=== PATIENT | female | born 1975 | race Caucasian/White ===

== ENCOUNTER 2022-08-30 14:28 | Outpatient (CLI) | payer OTHER, SELFPAY ==
--- NOTE | 2022-08-30 14:40 | CRLHL7_ITS ---
For Patients: As a result of the Century Cures Act, medical imaging exams and procedure reports are released immediately into your electronic medical record. You may view this report before your referring provider. If you have questions, please contact your health care provider. BILATERAL DIGITAL SCREENING MAMMOGRAM WITH TOMOSYNTHESIS AND COMPUTER-AIDED DETECTION CLINICAL HISTORY: Routine screening exam. COMPARISON: 08/23/2021, 08/04/2020, 07/12/2019. TECHNIQUE: Digital mammogram in CC and MLO projections including computer-aided detection (CAD). Tomosynthesis utilized. BREAST COMPOSITION: The breasts are heterogeneously dense, which may obscure small masses. FINDINGS: RIGHT Breast: Focal asymmetric density within the posterior RIGHT breast CC view only 6 cm from the nipple. This is a probable cyst in located at approximately 5 o`clock. LEFT Breast: No suspicious findings. IMPRESSION: RIGHT breast asymmetry/mass. RECOMMENDATIONS: RIGHT breast ultrasound recommended. BI-RADS Category 0: Incomplete: Need Additional Imaging Evaluation and/or Prior Mammograms for Comparison The [facility] will contact the patient for follow-up. A lay language report of this examination will be provided to the patient. Dictated by True Morrison MD @ 08/31/2022 10:57:34 AM jj/Dictated by: True Morrison MD @ 08/31/2022 10:57:00 AM (Electronically Signed)
== END 2022-08-30 14:29 | disposition home or self-care (01) ==
LOC: MAMMO 14:29
PROVIDERS: PCP Family Medicine; Visit Provider Family Medicine
DX: Z12.31 Encounter for screening mammogram for malignant neoplasm of breast (principal); N63.10 Unspecified lump in the right breast, unspecified quadrant
CPT/HCPCS: 77063; 77067

== ENCOUNTER 2022-09-01 07:33 | Outpatient (CLI) | payer OTHER, SELFPAY ==
[2022-09-01 09:55] LABS: Albumin* 3.9 g/dL (3.3-5.0); Chloride* 110 mmol/L (96-114)
[2022-09-01 09:56] LABS: Potassium* 4.6 mmol/L (3.6-5.1); Sodium* 138 mmol/L (135-149)
[2022-09-01 09:58] LABS: Carbon Dioxide* 25 mmol/L (20-32); Cholesterol* 196 mg/dL (90-199); Estimated Glomerular Filt Rate 71 ml/min
[2022-09-01 09:59] LABS: Alanine Aminotransferase* 18 U/L (4-35); Alkaline Phosphatase* 46 U/L (40-150); Aspartate Amino Transferase* 24 U/L (12-35); Bilirubin Total* 0.4 mg/dL (0.1-1.5); Blood Urea Nitrogen* 20 mg/dL (5-24); Calcium* 8.4 mg/dL (8.4-10.6); Glucose* 91 mg/dL (60-115); Total Protein* 6.5 g/dL (6.0-8.3); Triglycerides* 84 mg/dL (40-149)
[2022-09-01 10:00] LABS: HDL Cholesterol* 65 mg/dL (>=50); LDL Cholesterol Calculated 114 mg/dL (<100)
[2022-09-08 08:19] LABS: Iron* 31 ug/dL (37-170)
[2022-09-08 08:28] LABS: Percent Iron Saturation 7 % (20-50); Total Iron Binding Capacity 465 ug/dL (265-497)
[2022-09-08 09:09] LABS: Vitamin B12* 405 pg/mL (243-894)
== END 2022-09-01 07:34 | disposition home or self-care (01) ==
LOC: NFLDREF 07:33
PROVIDERS: PCP Family Medicine; Visit Provider Family Medicine
DX: E78.5 Hyperlipidemia, unspecified (principal)
CPT/HCPCS: 80053; 80061; 82607

== ENCOUNTER 2022-09-05 11:03 | Outpatient (CLI) | payer OTHER, SELFPAY ==
--- NOTE | 2022-09-05 11:15 | CRLHL7_ITS ---
For Patients: As a result of the Cures Act, medical imaging exams and procedure reports are released immediately into your electronic medical record. You may view this report before your referring provider. If you have questions, please contact your health care provider. RIGHT BREAST ULTRASOUND CLINICAL HISTORY: RIGHT breast mass/asymmetry. COMPARISON: 08/30/2022. TECHNIQUE: Real-time ultrasound imaging of the RIGHT breast with imaging documentation. FINDINGS: Targeted sonogram RIGHT breast 5 o`clock 6 cm from the nipple performed. In this location there is a simple circumscribed mostly anechoic cyst with increased through-transmission measuring 1.1 x 0.6 x 1.2 cm. Mild internal debris noted. IMPRESSION: Benign cyst RIGHT breast 5 o`clock 6 cm from the nipple measuring 1.2 cm. No evidence of malignancy. RECOMMENDATIONS: Annual BILATERAL screening mammography. Results and recommendations were discussed with the patient at the time of the exam. BI-RADS Category 2: Benign A lay language report of this examination will be provided to the patient. Dictated by True Morrison MD @ 09/05/2022 11:49:31 AM /Dictated by: True Morrison MD @ 09/05/2022 11:49:00 AM (Electronically Signed)
== END 2022-09-05 11:04 | disposition home or self-care (01) ==
PROVIDERS: PCP Family Medicine; Visit Provider Family Medicine
DX: N63.10 Unspecified lump in the right breast, unspecified quadrant (principal); N60.01 Solitary cyst of right breast; R92.8 Other abnormal and inconclusive findings on diagnostic imaging of breast
CPT/HCPCS: 76642

== ENCOUNTER 2022-09-08 07:26 | Outpatient (CLI) | payer OTHER, SELFPAY | END 2022-09-08 07:27 | disposition home or self-care (01) | LOC: NFLDREF 07:27 | PROVIDERS: PCP Family Medicine; Visit Provider Family Medicine | DX: Z00.00 Encounter for general adult medical examination without abnormal findings (principal); D64.9 Anemia, unspecified; N92.0 Excessive and frequent menstruation with regular cycle; E78.5 Hyperlipidemia, unspecified | CPT/HCPCS: 82728; 83540; 83550 ==

== ENCOUNTER 2022-09-14 10:36 | Outpatient (CLI) | payer OTHER, SELFPAY ==
--- NOTE | 2022-09-14 11:00 | CRLHL7_ITS ---
For Patients: As a result of the Century Cures Act, medical imaging exams and procedure reports are released immediately into your electronic medical record. You may view this report before your referring provider. If you have questions, please contact your health care provider. INDICATION: heavy periods, iron deficiency COMPARISON: none TECHNIQUE: 2D gonzalez scale and color Doppler images were acquired of the pelvis using a transabdominal and transvaginal approach. FINDINGS: A fundal intramural leiomyoma is present measuring 4.4 x 4.2 x 4.7 cm. This is located in the midline and abuts the endometrium. A right fundal fibroid is also noted measuring 4.0 x 6.2 x 4.8 cm. This is partially exophytic. An exophytic right sided fibroid also present arising from the mid uterus measuring 3.2 x 3.4 x 4.5 cm. The endometrium is obscured. Uterus measures 15.4 cm in length by 9.1 cm in AP diameter by 10.2 cm in transverse dimension. The right ovary measures 2.8 x 1.5 x 1.7 cm in size and the left ovary is not visualized. The right ovary demonstrates normal arterial and venous blood flow on color Doppler analysis. There are no suspicious fluid collections within the cul-de-sac. IMPRESSION: Multiple uterine fibroids measuring up to 6.2 cm. The endometrium is obscured. The midline fundal fibroid abuts the fundal endometrium and may be partially submucosal. Dictated by True Morrison MD @ 09/14/2022 12:41:43 PM (Electronically Signed)
== END 2022-09-14 10:37 | disposition home or self-care (01) ==
LOC: US 10:37
PROVIDERS: PCP Family Medicine; Visit Provider Family Medicine
DX: N92.0 Excessive and frequent menstruation with regular cycle (principal); D25.9 Leiomyoma of uterus, unspecified; D50.0 Iron deficiency anemia secondary to blood loss (chronic)
CPT/HCPCS: 76830; 76856

== ENCOUNTER 2022-11-03 06:04 | Day surgery (SDC) | payer OTHER, SELFPAY ==
[2022-11-03] MEDS: LACTATED RINGERS 1000 ML 1,000 ML 100 ML IV ×2 (06:30→07:50)
[2022-11-03] MEDS: SODIUM CHLORIDE 0.9 % (FLUSH) 10 ML SYRINGE IVF (06:30)
[2022-11-03 06:38] VITALS: BP 135/88; PULSE 116; RESP 18; TEMP 36.8; O2SAT 97; BMI 31.4
--- NOTE | 2022-11-03 06:42 | SUR.PREOP ---
Patient provided home covid negative results to RN.
[2022-11-03 06:55] LABS: Hemoglobin* 11.1 gm/dL (12.0-16.0)
[2022-11-03 06:59] LABS: Ur HCG Qualitative* Negative (Negative)
--- NOTE | 2022-11-03 07:14 | W.ANESCHARGE ---
Anesthesia Charges Start Date/Time Anesthesia Start Date: 11/03/22 Anesthesia Start Time: 07:21 Stop Date/Time Anesthesia Stop Date: 11/03/22 Anesthesia Stop Time: 08:16
[2022-11-03] MEDS: SILVER NITRATE APPLICATOR 1 EACH STICK..EA. TOPICAL (08:02)
[2022-11-03 08:13] VITALS: BP 105/67; PULSE 83; RESP 14; TEMP 36.3; O2SAT 99
[2022-11-03 08:15] VITALS: BP 115/60; PULSE 78; RESP 14; O2SAT 95
[2022-11-03 08:30] VITALS: BP 107/62; PULSE 67; RESP 16; O2SAT 99
--- NOTE | 2022-11-03 08:30 | P.GYNPRC_ITS ---
Procedure Note Time Seen by Provider: 07:45 Date Seen: 11/03/22 Procedure Details: Preoperative diagnosis: 47 year-old with AUB causing iron deficiency anemia likely due to intrauterine polyp. Postoperative diagnosis: AUB 2/2 to endometrial polyp and cervical leiomyoma Procedure: Hysteroscopy, dilation and curettage, polypectomy, myomectomy, and Mirena IUD insertion Anesthesia: Conscious sedation with paracervical block. Surgeon: Roberta Jacob MD Estimated blood loss: <5 mL Specimen: Endometrial curettings/polyp/leiomyoma to pathology. Findings: Exam under anesthesia: Cervix palpates normal. Uterus: Anteverted position, 8 week size, mobile, without nodularity/masses palpable. Adnexa were without fullness or nodularity. On hysteroscopy: One fundal polyp noted near the right tubal ostea and one leiomyoma noted at internal os. Procedure: Teetee was taken to the operating where conscious sedation was found to be adequate. She was placed in the dorsal lithotomy position. An exam under anesthesia was performed with findings stated above. She was then prepped and draped in normal sterile manner. A bivalve metal speculum was placed in the vaginal canal. The cervix and vaginal canal appear normal. A paracervical block was placed using 1% lidocaine: 5 mL injected at the 4 and 8 o'clock positions on the cervix. The anterior lip of the cervix was then grasped with a tenaculum. The cervix was dilated to Hegar 6. The uterus sounded to 10 cm. The hysteros cope advanced into the uterus and a diagnostic hysteroscopy was performed with findings stated above. Normal saline was used as the insufflation medium. Soft tissue shaver used to perform polypectomy. Unable to perform the myomectomy with the soft tissue shaver so the hysteroscope was removed. The cervix was dilated to Hegar 7 to accommodate a bigger scope associated with the dense tissues shaver. The hysteroscope was then readvanced into the uterus and myomectomy was performed without issues. Afterward a normal appearing uterine cavity was noted. Hysteroscopy was removed. Fluid deficit at the end of the procedure 200 cc. Attention was then turned towards IUD insertion. Uterus sounds to 10 cm. The IUD is loaded into the insertion tube, inserted to the sounded depth, and the IUD is deployed. Insertion tube was removed. Strings are trimmed to 3 cm. There were no complications with insertion. Tenaculum were removed from the uterus and cervix. Silver nitrite used to cauterize bleeding tenaculum site. Excellent hemostasis noted. The patient tolerated the procedure well. Sponge, lap and instruments counts were correct at the end of the procedure. The patient was awakened from anesthesia and taken to the recovery area in stable condition.
[2022-11-03 08:45] VITALS: BP 122/69; PULSE 66; RESP 16; O2SAT 99
--- NOTE | 2022-11-03 08:47 | W.ANESCHARGE ---
Anesthesia Charges Start Date/Time Anesthesia Start Date: 11/03/22 Anesthesia Start Time: 07:21 Stop Date/Time Anesthesia Stop Date: 11/03/22 Anesthesia Stop Time: 08:16
[2022-11-03 09:00] VITALS: BP 108/56; PULSE 67; RESP 16; O2SAT 100
== END 2022-11-03 09:16 | disposition home or self-care (01) ==
PROVIDERS: PCP Family Medicine; Visit Provider Obstetrics & Gynecology
PROC: 0UDB8ZZ Extraction of Endometrium, Via Natural or Artificial Opening Endoscopic (ICD-10-PCS; CPT 58558; principal; 2022-11-03 07:15)
DX: N84.0 Polyp of corpus uteri (principal); D26.0 Other benign neoplasm of cervix uteri; D50.0 Iron deficiency anemia secondary to blood loss (chronic); Z30.430 Encounter for insertion of intrauterine contraceptive device
CPT/HCPCS: 58561; 58300; 00952; 36415; 81025; 85018; A9270; J1100; J1885; J2250; J2405; J2704; J3010; J7120; J7298

== ENCOUNTER 2023-01-03 08:44 | Outpatient (CLI) | payer OTHER, SELFPAY | END 2023-01-03 08:45 | disposition home or self-care (01) | LOC: NFLDREF 01-04 07:57 | PROVIDERS: PCP Family Medicine; Referring Provider Family Medicine; Visit Provider Family Medicine | DX: N92.0 Excessive and frequent menstruation with regular cycle (principal); D50.0 Iron deficiency anemia secondary to blood loss (chronic); E78.5 Hyperlipidemia, unspecified | CPT/HCPCS: 82728; 83540; 83550 ==

== ENCOUNTER 2023-09-04 07:30 | Outpatient (CLI) | payer OTHER, SELFPAY | END 2023-09-04 07:31 | disposition home or self-care (01) | LOC: NFLDREF 11:27 | PROVIDERS: PCP Family Medicine; Referring Provider Family Medicine; Visit Provider Family Medicine | DX: D50.0 Iron deficiency anemia secondary to blood loss (chronic) (principal); E78.5 Hyperlipidemia, unspecified; Z13.1 Encounter for screening for diabetes mellitus | CPT/HCPCS: 80061; 82728; 82947 ==

== ENCOUNTER 2023-11-23 07:52 | Outpatient (CLI) | payer OTHER, SELFPAY ==
--- NOTE | 2023-11-23 08:15 | MM_ITS ---
Patient: BASIM CRUMP Facility:?[facility] Patient ID:?[id number] Site Patient ID:?[id number]. Site :?[id number] Study:?XRay-Breast Bilateral 3D W/CAD-11/23/2023 8:23:17 AM Ordering Physician:Michelle Final Report: BILATERAL SCREENING MAMMOGRAM WITH COMPUTER-AIDED DETECTION AND TOMOSYNTHESIS TECHNIQUE: CC and MLO views were obtained. These mammographic images have been obtained using full-field digital technique. These mammographic images were interpreted with the benefit of computer-aided detection. Breast Tomosynthesis was used in this interpretation. COMPARISON FILM: 08/30/22, 08/23/21, 08/04/20. FINDINGS: The breasts are heterogeneously dense, which may obscure small masses IMPRESSION: There is no radiographic evidence for malignancy. ASSESSMENT: BI-RADS Category 1: Negative RECOMMENDATION: Routine screening mammogram in 1 year. A lay language report of this examination will be provided to the patient. True Morrison M.D. Diagnostic Radiologist [email or web address] Transcribed: 1:32 p.[email or web address] culp/Dictated by: True Morrison MD @ 11/23/2023 12:44:00 PM Signed by:?True Morrison MD @11/23/2023 1:50:14 PM (Electronic Signature)
== END 2023-11-23 07:53 | disposition home or self-care (01) ==
LOC: MAMMO 07:53
PROVIDERS: PCP Family Medicine; Visit Provider Family Medicine
DX: Z12.31 Encounter for screening mammogram for malignant neoplasm of breast (principal); R92.2 Inconclusive mammogram
CPT/HCPCS: 77063; 77067

== ENCOUNTER 2024-09-16 07:30 | Outpatient (CLI) | payer OTHER, SELFPAY | END 2024-09-16 07:31 | disposition home or self-care (01) | LOC: NFLDREF 09-19 22:36 | PROVIDERS: PCP Family Medicine; Referring Provider Family Medicine; Visit Provider Family Medicine | DX: E78.5 Hyperlipidemia, unspecified (principal); Z13.1 Encounter for screening for diabetes mellitus | CPT/HCPCS: 80061; 82947 ==

== ENCOUNTER 2024-09-18 08:06 | Outpatient (CLI) | payer SELFPAY ==
[2024-09-20 02:24] LABS: HPV Source Cervical/Vag; HPV, High Risk by TMA Not Detected
== END 2024-09-18 08:07 | disposition home or self-care (01) ==
PROVIDERS: PCP Family Medicine; Visit Provider Family Medicine
DX: Z12.4 Encounter for screening for malignant neoplasm of cervix (principal); Z11.51 Encounter for screening for human papillomavirus (HPV)
CPT/HCPCS: 87624; 87625; 88141; 88142

== ENCOUNTER 2024-09-24 09:01 | Outpatient (CLI) | payer OTHER, SELFPAY | END 2024-09-24 09:02 | disposition home or self-care (01) | LOC: US 09:03 | PROVIDERS: PCP Family Medicine; Visit Provider Family Medicine | DX: R19.00 Intra-abdominal and pelvic swelling, mass and lump, unspecified site (principal); D25.9 Leiomyoma of uterus, unspecified | CPT/HCPCS: 76830; 76856 ==

== ENCOUNTER 2024-11-06 07:57 | Outpatient (CLI) | payer OTHER, SELFPAY ==
--- NOTE | 2024-11-06 08:15 | CRLHL7_ITS ---
For Patients: As a result of the 21st Century Cures Act, medical imaging exams and procedure reports are released immediately into your electronic medical record. You may view this report before your referring provider. If you have questions, please contact your health care provider. INDICATION: Fibroids TECHNIQUE: 1.5 T MRI performed with pre and postcontrast T1 weighted imaging; T2 weighted imaging. 20 mL Dotarem IV COMPARISON: Pelvic ultrasound 09/24/2024 FINDINGS: Uterus: The uterus is enlarged in size measuring 7.7 x 15.5 cm. The endometrium is largely effaced by multiple large fibroids and difficult to measure. There are many (over 20) uterine fibroids present. The largest measures 5.6 x 8.4 cm (8/5), is subserosal, and located along the right uterine fundus (FIGO 6) with central areas of degeneration. At least two fibroids are predominantly submucosal (FIGO 1) measuring up to 3.1 x 3.3 cm (/16). IUD appears positioned within the low endometrial cavity. Few scattered foci of intrinsic T1 hyperintensity are indeterminate for focal fibroid degeneration versus endometriosis. Cervical stroma: Intact without evidence of mass Ovaries/adnexa: Unremarkable. No evidence of ovarian/adnexal mass. Two dominant right follicles measure up to 2.3 cm. Left corpus luteum measuring 1.7 cm. Remaining pelvis: Limited evaluation of the abdominal viscera demonstrates normal appearance of the visualized bowel and urinary bladder. Vasculature: The iliac arteries are patent. Lymph nodes: No enlarged lymph nodes within the pelvis. Peritoneal space: No free fluid within the pelvis. Musculoskeletal: Bone marrow signal is within normal limits. IMPRESSION: 1. Multifibroid uterus (over 20), with the largest measuring up to 8.1 cm (FIGO score 6). Additional submucosal fibroids (FIGO score 1) measure up to 3.3 cm. 2. IUD appears positioned within the low endometrial cavity. 3. Few scattered foci of intrinsic T1 hyperintensity are indeterminate for focal fibroid degeneration versus endometriosis. Dictated by Emi Greenfield MD @ 11/06/2024 11:23:01 AM (Electronically Signed)
== END 2024-11-06 07:58 | disposition home or self-care (01) ==
LOC: MRI 07:58
PROVIDERS: PCP Family Medicine; Visit Provider Obstetrics & Gynecology
DX: D21.9 Benign neoplasm of connective and other soft tissue, unspecified (principal); D25.0 Submucous leiomyoma of uterus; R19.00 Intra-abdominal and pelvic swelling, mass and lump, unspecified site
CPT/HCPCS: 72197; A9575

== ENCOUNTER 2024-11-26 12:46 | Outpatient (CLI) | payer OTHER, SELFPAY ==
--- NOTE | 2024-11-26 13:00 | CRLHL7_ITS ---
For Patients: As a result of the Century Cures Act, medical imaging exams and procedure reports are released immediately into your electronic medical record. You may view this report before your referring provider. If you have questions, please contact your health care provider. INDICATION: BILATERAL SCREENING MAMMOGRAM, ASYMPTOMATIC 49 F COMPARISON: 11/23/23, 08/30/22, 08/04/20 TECHNIQUE: CC and MLO views were obtained. These mammographic images have been obtained using full-field digital technique. These mammographic images were interpreted with the benefit of computer aided detection and tomosynthesis. BREAST COMPOSITION: The breasts are heterogeneously dense, which may obscure small masses. FINDINGS: No suspicious findings. ASSESSMENT: BI-RADS 1 Negative RECOMMENDATION: Annual screening mammogram. A lay language report of this examination will be provided to the patient. Dictated by: True Morrison MD @ 11/28/2024 13:17:01 (Electronically Signed)
== END 2024-11-26 12:47 | disposition home or self-care (01) ==
LOC: MAMMO 12:46
PROVIDERS: PCP Family Medicine; Visit Provider Family Medicine
DX: Z12.31 Encounter for screening mammogram for malignant neoplasm of breast (principal); R92.333 Mammographic heterogeneous density, bilateral breasts
CPT/HCPCS: 77063; 77067

== ENCOUNTER 2024-12-04 06:08 | Inpatient (IN) | payer OTHER, SELFPAY ==
[2024-12-04] VITALS (20 sets, daily range): BP systolic 102–129; BP diastolic 61–83; PULSE 60–95; RESP 14–18; TEMP 36.2–36.6; O2SAT 78–98; BMI 31.7
--- NOTE | 2024-12-04 06:43 | W.PM.H&PU ---
History & Physical Update History & Physical Update H&P Reviewed and patient assessed: No changes noted H&P Updates: Surgical plan and consent reviewed with patient. No interval changes since last time we saw each other.
[2024-12-04 06:47] LABS: Ur HCG Qualitative* Negative (Negative)
[2024-12-04] MEDS: LACTATED RINGERS 1000 ML 1,000 ML 100 ML IV ×2 (06:50→09:32)
[2024-12-04] MEDS: SODIUM CHLORIDE 0.9 % (FLUSH) 10 ML SYRINGE IVF (06:50)
[2024-12-04 07:00] LABS: Hemoglobin* 15.6 gm/dL (12.0-16.0)
[2024-12-04] MEDS: GABAPENTIN 600 MG TABLET PO (07:00)
[2024-12-04] MEDS: ACETAMINOPHEN 500 MG TABLET 1000 MG PO ×2 (07:00→12:00)
[2024-12-04] MEDS: SCOPOLAMINE 1 MG/3 DAY PATCH 1 PATCH TRANSDERMA (07:00)
[2024-12-04 07:14] LABS: Creatinine* 0.9 mg/dL (0.5-1.5); Est. Creatinine Clearance* 69.53; Estimated Glomerular Filt Rate 79 ml/min
[2024-12-04] MEDS: CEFAZOLIN 2 GM INJ IVP (07:32)
--- NOTE | 2024-12-04 07:38 | W.PM.NB ---
Nerve Block Nerve Block Time Seen by Provider: 07:30 Date Seen: 12/04/24 Type of block requested by surgeon for post-operative analgesia: TAP Side: bilateral Time out performed: Yes Verification of patient name: Yes Verification of date of : Yes Site marking: site marked Name of person performing procedure: Eladio Continuous monitoring Was continuous monitoring of O2 sat, B/P, beading installer, recorded every 15 minutes?: Yes Procedure Checklist: sterile prep, needles and gloves Ultrasound guided. Images saved: Yes Medications given in 5ml increments after negative aspiration: Marcaine %: 0.25 mL: 30 Needle gauge: 20 and Exparel mL: 10 Patient tolerated procedure well: Yes Additional comments: Needle noted between internal oblique and transversus abdominus. Local spread visualized Block Charges Block Charge (with Pro Fee): TAP Bilateral Use of Ultrasound Machine for Block: Yes- US Guidance/pain block
--- NOTE | 2024-12-04 08:17 | SUR.OPER ---
PATIENT QUESTIONS ANSWERED SATISFACTORILY PREOPERATIVELY. PATIENT BROUGHT TO OR #2 PER CART. Patient positioned supine on OR #2 bed.? Perioperative team supported arms bilaterally on arm boards.? Final approval of positioning by surgeon.
--- NOTE | 2024-12-04 09:32 | P.ANES_ITS ---
Anesthesia Charges Start Date/Time Anesthesia Start Date: 12/04/24 Anesthesia Start Time: 07:22 Stop Date/Time Anesthesia Stop Date: 12/04/24 Anesthesia Stop Time: 10:41 Coding CPT Codes CPT Codes: ANESTH SURG LOWER ABDOMEN - 81571 ([id number]) P2 - PATIENT W/MILD SYST DISEASE, QK - SLOPE RUNNER 2-4 CNCRNT ANES PROC, QX - LUBE WORKER SVC W/ MD MED DIRECTION
--- NOTE | 2024-12-04 09:32 | W.ANESCHARGE ---
Anesthesia Charges Start Date/Time Anesthesia Start Date: 12/04/24 Anesthesia Start Time: 07:22 Stop Date/Time Anesthesia Stop Date: 12/04/24 Anesthesia Stop Time: 10:41 Coding CPT Codes CPT Codes: ANESTH SURG LOWER ABDOMEN - 83418 ([id number]) P2 - PATIENT W/MILD SYST DISEASE, QK - SUPERVISOR REAL ESTATE OFFICE 2-4 CNCRNT ANES PROC, QX - MEDICAL MANAGEMENT SPECIALIST SVC W/ MD MED DIRECTION
--- NOTE | 2024-12-04 10:43 | P.ANES_ITS ---
Anesthesia Charges Start Date/Time Anesthesia Start Date: 12/04/24 Anesthesia Start Time: 07:22 Stop Date/Time Anesthesia Stop Date: 12/04/24 Anesthesia Stop Time: 10:41 Coding CPT Codes CPT Codes: ANESTH SURG LOWER ABDOMEN - 83224 ([id number]) P2 - PATIENT W/MILD SYST DISEASE, QK - NETWORK CABLER 2-4 CNCRNT ANES PROC, QX - MANAGEMENT DEVELOPER SVC W/ MD MED DIRECTION
--- NOTE | 2024-12-04 10:43 | W.ANESCHARGE ---
Anesthesia Charges Start Date/Time Anesthesia Start Date: 12/04/24 Anesthesia Start Time: 07:22 Stop Date/Time Anesthesia Stop Date: 12/04/24 Anesthesia Stop Time: 10:41 Coding CPT Codes CPT Codes: ANESTH SURG LOWER ABDOMEN - 02127 ([id number]) P2 - PATIENT W/MILD SYST DISEASE, QK - ASSEMBLY MACHINE FEEDER 2-4 CNCRNT ANES PROC, QX - WELL SERVICE FLOORPERSON SVC W/ MD MED DIRECTION
--- NOTE | 2024-12-04 10:44 | P.PCNOB_ITS ---
Procedure Type of Hysterectomy: Total Abdominal Pre-op/Post-op diagnoses: Pre-Op/Post-Op Diagnoses Operation Date: 12/04/24 07:15 <No data on this case meets the specified criteria> Procedure: Procedures Operation Date: 12/04/24 07:15 Actual Procedure Side Surgeon p Admit-Total Abdominal Hysterectomy, Bilateral Salpingectomy, Cystoscopy, BILATERAL OVARIAN CYSTECTOMIES, MIRENA I.U.D. REMOVAL. Bilateral Roberta Jacob MD Bag Machine Helper: Corrina Alicia Estimated blood loss (mL): 100 Anesthesia Type: General and Local (TAP ) Complications: none Fluids: crystalloid Fluid amount (mL): 1,400 Urine output (mL): 500 (Clear urine) Weight of Uterus: 1 lb 11.302 oz Specimen: uterus, left tube, right tube and other (Bilateral ovarian cyst ) Disposition: floor Narrative: PREOPERATIVE DIAGNOSIS: Teetee is a 49-year-old 0 para 0 with abnormal uterine bleeding. Multi-fibroid uterus (over 20). The patient requested definitive management with a hysterectomy after discussing all possible options. Consent was signed in the office prior and all risks, benefits, and alternatives were reviewed. POSTOPERATIVE DIAGNOSIS: Same SURGEON: Roberta Jacob MD ANESTHESIA: General endotracheal, TAP. COMPLICATIONS: None DRAINS: Trammell to gravity. SPECIMEN: (1) Uterus with bilateral fallopian tubes (2) Physiologic bilateral ovarian cysts. FINDINGS: Exam under anesthesia: Mons normal, clitoris normal, urethral meatus normal. Labia minora and majora normal in appearance bilaterally. Perineum and anus normal appearance. Vaginal introitus normal appearance. Vaginal pink and well rugated with scant white discharge. Cervix pink and without lesion. IUD strings visualized protruding from os. IUD strings grasped and removed with gentle traction. Mirena IUD noted to be intact after removal. Bimanual exam reveals enlarge uterus 1 cm passed umbilicus and mobile On laparotomy: Large multi-fibroid uterus. Small bilateral ovary cysts. Filmy adhesion of the sigmoid to right pelvic side wall and right posterior cul-de-sac. On cystoscopy: The dome of the bladder was noted to be without defect and no evidence of any sutures from the vaginal cuff causing injury. Normal urine flow was noted through both ureteral orifices. PROCEDURE: After obtaining informed consent, the patient was taken to the operating room where general anesthesia was obtained without difficulty. A trammell catheter was placed. She was prepared and draped in the normal sterile fashion in the dorsal supine position. A midline vertical infraumbilical skin incision was made with a scalpel. This incision was carried down to the underlying layer of fascia with a combination of the sharp dissection with the scalpel and bipolar cautery using the Bovie. The fascia was incised in the midline with the electrocautery and the incision extended superiorly and inferiorly with electrocautery. The rectus muscles were in the midline. The underlying peritoneum was identified and entered sharply with Lenka's and Metzenbaum. The peritoneal incision was extended superiorly and inferiorly with good visualization of the bladder. The patient was placed in some mild Trendelenburg positioning. The intestines were packed cephalad using a large moistened laparotomy sponge. The Cullen O retractor was placed in the incision. This provided excellent visualization of the pelvis. The pelvis was inspected with the findings noted above. [place] clamps were placed at the cornua bilaterally for traction. Both uret ers were identified along their courses within the pelvic sidewall. The right fallopian tube was grasped with a Caleb clamp. Sequential pedicles were formed using impact LigaSure. The fallopian tube was then amputated from the cornua and sent to pathology. The left fallopian tube was removed in a similar manner. Bilateral physiologic ovarian cysts noted to be leaking fluid. Decision made to perform bilateral cystectomy. Running locking stitch with 3-0 vicryl use to close the defect on right ovary with excellent hemostasis. Electrocautery used to achieve hemostasis on the left ovary. Lysis of adhesions with Metzenbaum used to take down filmy adhesions and dropped the sigmoid colon down from the left pelvic sidewall and left posterior cul-de-sac. Attention was turned to completing the hysterectomy. The left round ligament was doubly clamped with Fran clamps, transected, and suture ligated with 0 Vicryl. The anterior leaf of the broad ligament was opened to the midline from the right side. The bladder flap was created with a combination of sharp dissection with Metzenbaum scissors and bipolar cautery using the Bovie. The uterine vessels were skeletonized on the right side. The vessels were clamped across with a Gracie and a straight clamp, transected, and suture ligated. Excellent hemostasis was obtained. Attention was then turned to the right side. The left round ligament was clamped with Impact LigaSure. The anterior leaf of the broad ligament was opened from the left side to the midline. The bladder was further pushed caudally with a sponge stick. The left uterine vessels were skeletonized and then clamped across with Gracie clamps, transected, and suture ligated. Excellent hemostasis was noted. The remaining cardinal and uterosacral ligament attachments on both sides were clamped with straight Gracie clamps adjacent to the lower uterine segment and cervix, transected and suture ligated with 0 Vicryl. Excellent hemostasis was obtained. Two Gracie clamps were placed across the vaginal cuff angles. The uterus with attached cervix was then transected and passed off the field. The vaginal cuff angles were fixed with Gracie stitches of 0 Vicryl. The intervening vaginal cuff was closed with [id number] sutures of 0 Vicryl. The abdomen and pelvis were then copiously irrigated with warm sterile water. Small bleeding vessels were isolated with DeBakey clamps and cauterized for hemostasis. Kar was placed over raw tissue edges for additional hemostasis x2. All laparotomy sponges and instruments were then removed. Cystoscopy performed with the above finding. Attention turned towards closure. The subfascial tissues were carefully inspected and hemostasis assured. The fascia was reapproximated in a running fashion with a looped 0 PDS suture. The subcutaneous tissues were copiously irrigated and hemostasis assured. The subcutaneous adipose layer was reapproximated using 2-0 chromic suture in a running manner: 1 layer were placed to minimize space. The skin was closed in a subcuticular fashion with 4-0 Monocryl. Exofin skin adhesive and a dressing were applied. The patient tolerated the procedure well. Sponge, lap, needle, instrument counts were reported as correct x2. The patient was taken to recovery room awake and in stable condition. Preop antibiotics: Ancef 2g IV Surgical debrief performed and specimen reviewed.
[2024-12-04] MEDS: fentaNYL 100 MCG/2 ML inj 50 MCG IVP (11:03)
[2024-12-04] MEDS: IBUPROFEN 600 MG TABLET PO ×2 (15:33→21:16)
--- NOTE | 2024-12-04 19:21 | PC.NURSE ---
The patient is pleasant, VSS on RA. Acuna is patent and draining. Reports mild pain this shift, controlled well with ice, Tylenol and IBU. The patient is tolerating a regular diet with no issues. Vertical incision CDI, small amount of vaginal bleeding was noted. Stood at the bedside this evening and would like to walk on clinical fellow. SCDS on and call light within reach. Emma JUNIOR BSN
[2024-12-05 03:00] VITALS: BP 101/66; PULSE 80; RESP 18; TEMP 36.4; O2SAT 95
[2024-12-05] MEDS: IBUPROFEN 600 MG TABLET PO ×3 (03:03→15:59)
--- NOTE | 2024-12-05 05:26 | PC.NURSE ---
Shift note: Patient is doing well ambulating with SBA, Walked in hallway. Acuna in draining yellow colored urine. Pain is minimal rated at 2/10. No PRN pain medication requested. Tolerated regular diet well. Dressing intact, appeared clean and dry. Vitally stable.
[2024-12-05 06:57] LABS: Hemoglobin* 13.6 gm/dL (12.0-16.0)
[2024-12-05 07:17] LABS: Est. Creatinine Clearance* 62.58; Estimated Glomerular Filt Rate 70 ml/min
--- NOTE | 2024-12-05 08:18 | PM.GYNDS1 ---
DS: Providers Provider Time Seen by Provider: 07:30 Date Seen: 12/05/24 Date of admission: 12/04/24 06:08 Primary care physician: Ursula Weller MD Admitting Clinician: Roberta Jacob MD Attending Physician on discharge: Roberta Jacob MD Date of Discharge: 12/05/24 DS: Diagnosis Discharge Diagnosis (1) Leiomyoma: Status: Acute (2) Pelvic fullness in female: Status: Acute (3) H/O abdominal hysterectomy: Status: Acute Problem details: MEAGAN + BS on 12/04/24 PROGRAM DIRECTOR/TRAFFIC DIRECTOR-Discharge Summary Hospital Course Hospital Course Narrative: Patient is a 49 year old admitted on 12/04/24 for scheduled surgery. Total Abdominal Hysterectomy, Bilateral Salpingectomy, Cystoscopy, BILATERAL OVARIAN CYSTECTOMIES, MIRENA I.U.D. REMOVAL Indication for surgery: Abnormal uterine bleeding and multifibroid uterus. Intraoperative findings: Exam under anesthesia: Mons normal, clitoris normal, urethral meatus normal. Labia minora and majora normal in appearance bilaterally. Perineum and anus normal appearance. Vaginal introitus normal appearance. Vaginal pink and well rugated with scant white discharge. Cervix pink and without lesion. IUD strings visualized protruding from os. IUD strings grasped and removed with gentle traction. Mirena IUD noted to be intact after removal. Bimanual exam reveals enlarge uterus 1 cm passed umbilicus and mobile On laparotomy: Large multi-fibroid uterus. Small bilateral ovary cysts. Filmy adhesion of the sigmoid to right pelvic side wall and right posterior cul-de-sac. On cystoscopy: The dome of the bladder was noted to be without defect and no evidence of any sutures from the vaginal cuff causing injury. Normal urine flow was noted through both ureteral orifices. She had an uncomplicated surgery. Postoperative course has been uneventful. Vitals have been stable. She has remained afebrile. Today, on postoperative day 1, she reports the pain is well controlled on oral pain medication. She has been able to ambulate without difficulty. She is tolerating regular diet. She is passing flatus. Trammell catheter has been removed, and she is voiding without difficulty. Time Spent with Patient Time attestation: Total time spent providing and/or coordinating discharge services: Time spent: Less than 30 minutes PROGRAM DIRECTOR/TRAFFIC DIRECTOR - Exam Physical Exam: Vital signs: Temp Pulse Resp BP Pulse Ox O2 Del Method 97.6 F 80 18 101/66 95 Room Air 12/05/24 03:00 12/05/24 03:00 12/05/24 03:00 12/05/24 03:00 12/05/24 03:00 12/05/24 03:00 Narrative: Physical exam: General: No acute distress Psych: Alert and oriented x4, full affect HEENT: Normocephalic, atraumatic Heart: Regular rate and rhythm, no murmur rub or gallop Lungs: Clear to auscultation bilaterally Abdomen: Normoactive bowel sounds, soft, no tenderness, rebound, or guarding Incision(s): Dressing removed. Appropriately tender to palpation. Clean, dry, and intact. No erythema, induration, or abnormal discharge/breakdown Skin: No lesions or rashes Lower extremities: No edema or erythema Pelvic exam: Scant spotting on pad PROGRAM DIRECTOR/TRAFFIC DIRECTOR - DS: Data Data Completed and Pending Labs on day of discharge: Labs from last 24 hours 12/05/24 06:30 Hgb 13.6 Creatinine 1.0 Estimated Creat Clear 62.58 Estimated GFR 70 Procedures Procedures: Procedures Operation Date: 12/04/24 07:15 Actual Procedure Side Surgeon p Admit-Total Abdominal Hysterectomy, Bilateral Salpingectomy, Cystoscopy, BILATERAL OVARIAN CYSTECTOMIES, MIRENA I.U.D. REMOVAL. Bilateral Roberta Jacob MD Complications: none Discharge Plan Discharge Disposition: Home, Self-Care Date of Admission: 12/04/24 06:08 Attending Provider on Discharge: Roberta Jacob Primary Care Provider: Ursula Weller Condition: Stable Anticipated Discharge Date/Time: 12/05/24 13:00 Discharge Medications: New acetaminophen 500 mg Tablet 1,000 mg PO Q6H PRN30 Days Qty: 60 0RF docusate sodium 100 mg Capsule 100 mg PO BID PRN (Reason: Constipation) 30 Days Qty: 60 0RF ibuprofen 600 mg Tablet 600 mg PO Q6H PRN (Reason: Abdominal Discomfort) 30 Days Qty: 60 0RF oxycodone 5 mg Tablet 5 mg PO Q6H PRN (Reason: Moderate Pain) Qty: 15 0RF simethicone 80 mg Tablet,Chewable 160 mg PO Q4H PRN (Reason: gas) 30 Days Qty: 60 0RF Continued multivitamin with iron [Daily Vitamin with Iron] Tablet 1 tab PO QDAY Discharge Orders: Discharge Order (Routine); Ordered 12/05/24 Ordered By: Roberta Jacob Patient Education: Hysterectomy (DC) Activity Level: Other Activity Detail: No heavy lifting/pushing/pulling for 4-6 weeks. Do not lift anything more than about 10-15 lbs (such as laundry, groceries, children, pets), vacuum, push heavy doors or grocery carts, etc. You may climb stairs as tolerated. Do not put anything in the vagina for 6 weeks after surgery unless otherwise instructed by your doctor (including tampons, douching, sexual intercourse, etc). No driving for about 2 weeks after surgery, while you are taking narcotic pain medication, or until you feel that you are ready. Practice checking your blind spot and stepping hard on the brake. Avoid sitting or lying in bed for more than 2 hours at a time while you are awake to reduce your risk of blood clots. You may return to work when directed by your physician. Please contact your doctor if you need any return to work letters or medical leave paperwork to be completed. Follow Up Appointments: Ursula Weller MD [Primary Care Provider] - Cecil,Robetra Pulido MD [Staff Physician] - 12/18/24 1:45 pm (Post op appointments at the [facility] 12/18/24 @1:45 pm 01/30/25 @2:00pm) Forms: [facility] Info Instructions Discharge Comments: Total Abdominal Hysterectomy POSTOPERATIVE INSTRUCTIONS ACTIVITY No heavy lifting/pushing/pulling for 4-6 weeks. Do not lift anything more than about 10-15 lbs (such as laundry, groceries, children, pets), vacuum, push heavy doors or grocery carts, etc. You may climb stairs as tolerated. Do not put anything in the vagina for 6 weeks after surgery unless otherwise instructed by your doctor (including tampons, douching, sexual intercourse, etc). No driving for about 2 weeks after surgery, while you are taking narcotic pain medication, or until you feel that you are ready. Practice checking your blind spot and stepping hard on the brake. Avoid sitting or lying in bed for more than 2 hours at a time while you are awake to reduce your risk of blood clots. You may return to work when directed by your physician. Please contact your doctor if you need any return to work letters or medical leave paperwork to be completed. WOUND CARE You will have one large incision on your abdomen. There will be dissolvable stitches under your skin that do not need to be removed. You have surgical glue that may be removed like a Band-Aid when they curl up at the edges. Shower daily after surgery. Clean your incision with mild antibacterial soap and water. Pat your incision dry with a clean towel. No tub baths until wound is completely healed. Wash your hands frequently, especially before touching your incision, changing any dressings, after using the restroom, and before eating. PAIN MANAGEMENT Take your oral pain medication as needed. You should be taking Ibuprofen 600mg every 6 hours with 1 gram of Tylenol every 6 hours. You can take these together every six hours or alternate them every 3 hours. You should then take the oxycodone as needed if you have breakthrough pain on top of the Tylenol and Ibuprofen. Some pain medications can cause constipation so you should take a stool softener (i.e. colace/senna) while you are on these medications. You may also take milk of magnesia or Miralax for constipation. WHAT TO EXPECT AT HOME Recovery from surgery is generally 4-6 weeks, but sometimes longer for more strenuous activity. It is normal to be very tired during this time. It is normal to have some drainage or a small amount of vaginal bleeding after surgery which may last up to 6 weeks. You may go home with a trammell catheter in your bladder. You will need to follow up for a nurse visit in 7-10 days for removal. You will most likely experience gas pain, abdominal swelling, or shoulder pain for 24-72 hours after surgery. A warm shower, heating pad, and/or walking may help. WHEN TO CALL YOUR DOCTOR : Fever (>100.4?F or 38.0?C) or chills. Incision/IV site problems such as redness, warmth, swelling, or foul smelling drainage. Severe nausea or persistent vomiting. Bright red vaginal bleeding (soaking >2 pad/hour) or foul smelling vaginal drainage. Severe pain not relieved with pain medication. Pain and swelling in your legs, especially if it is only on one side and not the other. Pain with urination, cloudy urine, or foul smelling urine. Or if you have any other problems or questions. CALL 911 OR GO TO THE EMERGENCY ROOM IF YOU HAVE: Any shortness of breath, difficulty breathing, or chest pain.
[2024-12-05 09:00] VITALS: BP 115/74; PULSE 87; RESP 16; TEMP 36.7; O2SAT 96
[2024-12-05 09:35] VITALS: TEMP 36.4
[2024-12-05] MEDS: DOCUSATE SODIUM 100 MG CAPSULE PO (09:36)
[2024-12-05 11:08] VITALS: BP 110/62; PULSE 85; RESP 16; TEMP 36.4; O2SAT 94
[2024-12-05 15:00] VITALS: BP 112/66; PULSE 83; RESP 16; TEMP 36.7
--- NOTE | 2024-12-05 18:49 | PC.NURSE ---
Discharge-- Very pleasant and cooperative, alert and oriented patient was discharged to home via wheelchair with parents this afternoon. VSS and pt is afebrile. SPO2 maintained >90% on RA. Pain appeared well managed with scheduled Motrin only. Midline incision on abdomen is АННА, well approximated and appears to be healing well. Small amount of redness/bruising noted along right side of incision. Minimal old, dry bleeding on pad per patient statement. LS CTA. She ambulated in room and hallway independently and tolerated it well. Acuna was removed this morning and pt was unable to void until roughly 1500. Pt bladder scanned for only 120, drank increased fluids and was then able to void 200ml of clear, yellow urine. MD was notified. Discharge information was provided including diagnosis info, symptoms to report, medications and follow up plan. All questions were answered and SL was removed with tip intact.
== END 2024-12-05 17:18 | disposition home or self-care (01) | DRG 743 ==
PROVIDERS: Anesthesiology; Admitting Provider Obstetrics & Gynecology; PCP Family Medicine; Visit Provider Obstetrics & Gynecology
PROC: 0UT94ZZ Resection of Uterus, Percutaneous Endoscopic Approach (ICD-10-PCS; CPT 52000; principal; 2024-12-04 07:15)
DX: N93.8 Other specified abnormal uterine and vaginal bleeding (principal); D25.1 Intramural leiomyoma of uterus; D25.2 Subserosal leiomyoma of uterus; N83.292 Other ovarian cyst, left side; N83.291 Other ovarian cyst, right side; G89.18 Other acute postprocedural pain; E66.9 Obesity, unspecified; E78.5 Hyperlipidemia, unspecified; D64.9 Anemia, unspecified; Z68.31 Body mass index [BMI] 31.0-31.9, adult
CPT/HCPCS: 00840; 36415; 51798; 64488; 76942; 81025; 82565; 85018; 86850; 86900; 86901; 88305; 88307; A4314; A9270; J0330; J0665; J0666; J0690; J1100; J1885; J2405; J2704; J2710; J3010; J3475; J3490; J7120